=== PATIENT | male | born 1945 | race Caucasian/White ===

== ENCOUNTER 2017-02-06 10:12 | Emergency (ER) | payer BC ==
[2017-02-06 09:51] LABS: BE (BASE EXCESS) 20.3 MEQ/L (0 +/- 2.5); HCO3 (ACTUAL BICARBONATE) 51.5 MEQ/L (23-27); INSTRUMENT SERIAL # 8087; OPERATOR ID 18801; PCO2 (CO2 TENSION) 92 MMHG (35-45); PO2 (O2 TENSION) 76 MMHG (79-93); SAMPLE Arterial; pH 7.37 (7.37-7.43)
[~2017-02-06 10:12] MED LIST: 8 HOUR650 MG PO; ADVAIR INH; ADVAIR250 INH; ALBUTEROL INH; AMITIZA24 PO; BUM1 PO; CARD30 PO; CARDCD120; CARDCD120 PO; CARDCD180 PO; CARDCD240 PO; CARDCD360 PO; CEFT5 PO; COSAMIN DS1 TAB PO; DOX10 PO; DSS PO; DURA25 TOP; ELIQUIS 5 MG TAB5 MG PO; FIBERCON PO; FISH OIL 360 MG PO; FISH-EPA1000 MG PO; FLECAINIDE100 MG PO; FLECAINIDE150 MG PO; FLEXERIL5 MG PO; FLOMAX4 PO; GLUCCHONDR PO; GLUCOSAMINEPO PO; LEVSINTAB PO; LIDOCAINE TOP; LIDODERM TOP; LYRICA25 PO; MELATONIN5 M1 PO; METAMUCIL CAN7 OZ PO; MIRALAXPKT PO; NASACORTAQ NAS; NORCO1 TAB PO; OTC ACID REDUCER PO; P10 PO; PCET PO; PRIN10 PO; PROAIR HFA INH; PROSTATE PO; PROVENTSOL INH; RYTHMOL225 MG PO; SANI-SUPP1.5 GM PR; SINEQUAN 75 MG75 MG PO; TIKOSYN 500 M500 MCG PO; TRAZODONE150 MG PO; TYLENOL PM PO; V5 PO; VALERIAN ROOT; VALERIAN ROOT PO; VITAMIN B-121000 MC1 SL; VITAMIN C PO; VITAMIN E 200 UNIT PO; VITAMIN E PO; VITC500 PO; VITE PO; ZESTORETIC1 TAB PO; [UNRECOGNIZED DRUG - OTHER] PO; [UNRECOGNIZED DRUG - OTHER] PO; [UNRECOGNIZED DRUG - OTHER] PO; [UNRECOGNIZED DRUG - OTHER] PO; [UNRECOGNIZED DRUG - OTHER] PR
[2017-02-06 10:24] LABS: BASOPHILS 0.3 %; BASOPHILS ABSOLUTE 0.03 10/3/uL (0.0-0.16); EOSINOPHILS 2.3 %; EOSINOPHILS ABSOLUTE 0.23 10/3/uL (0.0-0.53); HEMATOCRIT 35.3 % (40.0-51.0); HEMOGLOBIN 11.1 g/dL (13.6-17.8); IMMATURE GRANULOCYTES 0.3 %; IMMATURE GRANULOCYTES ABSOLUTE 0.03 10/3/uL (0.0-0.11); LYMPHOCYTES 16.5 %; LYMPHOCYTES ABSOLUTE 1.63 10/3/uL (0.67-4.30); MANUAL DIFF NO %; MEAN CORPUS HGB CONC 31.4 g/dL (32.0-36.0); MEAN CORPUSCULAR HEMOGLOB 31.4 pg (26.0-34.0); MEAN CORPUSCULAR VOLUME 99.7 fL (80-100); MEAN PLATELET VOLUME 9.8 fL (9.2-13.0); MONOCYTES 6.2 %; MONOCYTES ABSOLUTE 0.61 10/3/uL (0.21-1.20); NEUTROPHILS 74.4 %; NEUTROPHILS ABSOLUTE 7.32 10/3/uL (2.02-8.40); PLATELET COUNT 182 10/3/uL (150-400); RBC DISTRIBUTION WIDTH 14.8 % (12.0-16.0); RED CELL COUNT 3.54 10/6/uL (4.7-6.1); WHITE BLOOD CELLS 9.9 10/3/uL (4.5-10.5)
[2017-02-06 10:28] LABS: ASCORBIC ACID (UR NOT ORDER) 20 (NEG); BILIRUBIN, URINE NEGATIVE (NEG); ER URINALYSIS TAT 0 Hrs 08 Mins; KETONE, URINE NEGATIVE (NEG); LEUKOCYTE ESTERASE(NOT OR NEG (NEG); NITRITE (URINE) NEG (NEG); WBC (NOT ORDERED) (RFLEX) < 1 (0-5)
[2017-02-06 10:31] LABS: INTERNATIONAL NORMAL RATI 1.2 UNITS (-)
[2017-02-06 10:32] LABS: PARTIAL THROMBO TIME 35.2 SEC (22.5-37.2)
[2017-02-06 10:41] LABS: BUN (BLOOD UREA NITROGEN) 11 MG/DL (6-23); CALCIUM, SERUM 8.8 MG/DL (8.5-10.4); CHEST PAIN PROFILE TAT 0 Hrs 21 Mins; CREATININE 0.58 MG/DL (0.70-1.30); DIRECT BILIRUBIN 0.1 MG/DL (0.0-0.4); GFR AFRICAN AMERICAN 119 ML/MIN (>=60); GFR NON AFRICAN AMERICAN 103 ML/MIN (>=60); GLUCOSE, SERUM 130 MG/DL (60-99); INDIRECT BILIRUBIN(NOT ORDER) 0.5 MG/DL (0.1-0.9); POTASSIUM, SERUM 4.5 MMOL/L (3.5-5.3); SGOT(AST) 13 U/L (5-40); SGPT(ALT) 17 U/L (5-65); SODIUM, SERUM 137 MMOL/L (135-148); TOTAL BILIRUBIN 0.6 MG/DL (0-1.2); TOTAL PROTEIN 7.1 G/DL (6.0-8.5); TROPONIN I <0.02 NG/ML (<0.05)
[2017-02-06 10:42] LABS: ALBUMIN 3.1 G/DL (3.5-5.0); ALKALINE PHOSPHATASE 118 U/L (45-117); CHLORIDE, SERUM 85 MMOL/L (96-112)
[2017-02-06 10:48] LABS: CO2 (CARBON DIOXIDE) 45 MMOL/L (24-34)
== END 2017-02-06 13:54 | disposition home or self-care (01) ==
LOC: ER 10:12
PROVIDERS: Emergency Medicine
DX: J96.11 Chronic respiratory failure with hypoxia (principal); G93.40 Encephalopathy, unspecified; J44.9 Chronic obstructive pulmonary disease, unspecified; R91.8 Other nonspecific abnormal finding of lung field; G47.30 Sleep apnea, unspecified; I11.0 Hypertensive heart disease with heart failure; I50.9 Heart failure, unspecified; I48.0 Paroxysmal atrial fibrillation; F41.9 Anxiety disorder, unspecified; D64.9 Anemia, unspecified; Z79.899 Other long term (current) drug therapy
CPT/HCPCS: 36600; 70450; 71010; 80048; 80076; 81001; 82805; 83735; 83880; 84484; 85025; 85610; 85730; 87040; 93005; 94640; 99285